=== PATIENT | female | born 1965 | race Caucasian/White ===

== ENCOUNTER → 2020-03-03 | Outpatient (CLI) | payer OTHER ==
--- NOTE | 2020-03-10 09:16 | SLEEPCENT ---
DATE OF PROCEDURE: 03/03/2020 ORDERED BY: TEMI Sherwood Nocturnal polysomnography was performed for the titration of pressure therapy in this patient with a diagnosis of obstructive sleep apnea syndrome. Apnea-hypopnea index of 14.7. For testing the patient was fit with a [employer] Mirage Quattro full-face mask of small size; 4 cm of water pressure were applied to the circuit and the lights were extinguished. 7 hours and 32 minutes of data were reviewed. There were 333 minutes of sleep identified. Sleep latency was prolonged at 40 minutes. Rapid eye movement (REM) latency was further prolonged at 278 minutes. Sleep architecture improved late in the study on higher pressures. Overall sleep efficiency was 74.5%. The electrocardiogram showed a sinus rhythm with an average heart rate of 84 beats per minute. Electroencephalogram (EEG) showed normal waveforms for awake and sleep stages. Obstructive events improved with increases in pressure therapy. However, late in the study when the patient entered REM sleep significant obstructive events occurred once again in association with oxygen desaturations. Some central apneas emerged at higher pressures. Sleep was seen on a CPAP pressure of +15 and though mild hypopneic patterning was identified oxygen desaturations were avoided. Significant limb activity was identified during the study as well and limb movement arousal index on this occasion was 10. IMPRESSION: Obstructive sleep apnea syndrome (G47.33). RECOMMENDATIONS: Initiation of CPAP at a pressure of 15 should significantly improve the patient's obstructive respiratory events. Due to the late complication of emergence of central apneas, close clinical followup is recommended.
== END ==
LOC: M SLEEP 20:00
PROVIDERS: ATTEND Nurse Practitioner Family
DX: G47.33 Obstructive sleep apnea (adult) (pediatric) (principal)

== ENCOUNTER → 2022-04-04 | Outpatient (REF) | payer OTHER ==
[2022-04-04 11:48] LABS: BASO % 0.5 % (0.0-1.0); EOS # 0.3 10^3/uL (0.0-0.5); EOS % 3.8 % (0.0-3.0); HEMATOCRIT 45.5 % (36.0-47.0); HEMOGLOBIN 14.4 g/dl (12.0-15.5); LYMPH # 1.1 10^3/uL (1.5-5.0); LYMPH % 13.6 % (24.0-44.0); MEAN CORPUSCULAR HEMOGLOBIN 28.5 pg (27.0-33.0); MEAN CORPUSCULAR HGB CONC 31.6 g/dl (32.0-36.5); MEAN CORPUSCULAR VOLUME 89.9 fl (80.0-96.0); MONO # 0.7 10^3/uL (0.0-0.8); MONO % 9.2 % (2.0-8.0); NEUTROPHILS # 5.8 10^3/uL (1.5-8.5); NEUTROPHILS % 72.6 % (36.0-66.0); PLATELET COUNT, AUTOMATED 246 10^3/uL (150-450); RED BLOOD COUNT 5.06 10^6/uL (4.00-5.40)
[2022-04-04 12:19] LABS: ERYTHROCYTE SEDIMENTATION RATE 17 mm/hr (0-30)
[2022-04-04 12:24] LABS: ALBUMIN 3.8 GM/DL (3.2-5.2); ALT/SGPT 25 U/L (12-78); BILIRUBIN,TOTAL 0.7 MG/DL (0.2-1.0); BLOOD UREA NITROGEN 12 MG/DL (7-18); C REACTIVE PROTEIN QUANTITATIV 3.46 MG/DL (0.00-0.30); CARBON DIOXIDE LEVEL 30 MEQ/L (21-32); CHLORIDE LEVEL 102 MEQ/L (98-107); CREATININE FOR GFR 0.67 MG/DL (0.55-1.30); GLOMERULAR FILTRATION RATE > 60.0 (>51); GLUCOSE, FASTING 90 MG/DL (70-100); POTASSIUM SERUM 4.3 MEQ/L (3.5-5.1); SODIUM LEVEL 136 MEQ/L (136-145); TOTAL PROTEIN 7.4 GM/DL (6.4-8.2)
[2022-04-04 13:22] LABS: TOTAL 25(OH) VITAMIN D 28.3 NG/ML (30.0-100.0)
[2022-04-04 13:33] LABS: HEPATITIS B SURFACE ANTIGEN NEGATIVE (NEGATIVE)
[2022-04-04 14:00] LABS: HEPATITIS B CORE ANTIBODY IGM NEGATIVE (NEGATIVE); HEPATITIS C VIRUS ABY INDEX 0.1 INDEX (<0.8)
== END ==
LOC: M SFHCRHEU 08:49
PROVIDERS: ATTEND Internal Medicine Rheumatology
DX: M05.79 Rheumatoid arthritis with rheumatoid factor of multiple sites without organ or systems involvement (principal); R76.8 Other specified abnormal immunological findings in serum; R21 Rash and other nonspecific skin eruption; H04.123 Dry eye syndrome of bilateral lacrimal glands; R22.31 Localized swelling, mass and lump, right upper limb

== ENCOUNTER → 2024-04-17 | Outpatient (REF) | payer OTHER | LOC: M SFHCRHEU 10:03 | PROVIDERS: ATTEND Internal Medicine Rheumatology | DX: M05.79 Rheumatoid arthritis with rheumatoid factor of multiple sites without organ or systems involvement (principal) ==